=== PATIENT | female | born 1940 | race Caucasian/White ===

== ENCOUNTER 2018-06-02 13:01 | Day surgery (SDC) | payer OTHER ==
[2018-06-02] MEDS ORDERED: DENOSUMAB 60 MG/ML DISP.SYRIN SQ ONE (14:15)
[2018-06-02 15:03] VITALS: BP 144/72; PULSE 82; TEMP 97.7
== END 2018-06-02 15:09 | disposition home or self-care (01) ==
LOC: JASU-ENDO 13:01
PROVIDERS: ATTEND Internal Medicine Endocrinology, Diabetes & Metabolism
PROC: 3E013GC Introduction of Other Therapeutic Substance into Subcutaneous Tissue, Percutaneous Approach (ICD-10-PCS; principal; 2018-06-02)
DX: M81.0 Age-related osteoporosis without current pathological fracture (principal)
CPT/HCPCS: 96372; J0897

== ENCOUNTER 2019-09-25 13:03 | Day surgery (SDC) | payer OTHER ==
[2019-09-25] MEDS ORDERED: DENOSUMAB 60 MG/ML DISP.SYRIN SQ ONE (13:15)
[2019-09-25 14:31] VITALS: BP 163/82; PULSE 59; TEMP 97.9
== END 2019-09-25 14:15 | disposition home or self-care (01) ==
LOC: JCHEMO 13:03
PROVIDERS: ATTEND Internal Medicine Endocrinology, Diabetes & Metabolism
PROC: 3E013GC Introduction of Other Therapeutic Substance into Subcutaneous Tissue, Percutaneous Approach (ICD-10-PCS; principal; 2019-09-25)
DX: M81.0 Age-related osteoporosis without current pathological fracture (principal)
CPT/HCPCS: 96372; J0897

== ENCOUNTER 2022-04-08 16:23 | Inpatient (IN) | payer OTHER ==
[2022-04-08 16:47] VITALS: BMI 41.1
[2022-04-08 17:39] LABS: HEMATOCRIT 34.5 % (32.4-45.2); HEMOGLOBIN 11.3 G/dL (10.7-15.3); MCH 25.6 pg (25.7-33.7); MCHC 32.7 g/dl (32.0-36.0); MEAN CELL VOLUME 78.3 fl (80-96); MEAN PLT VOLUME 9.6 fl (7.5-11.1); PLATELET COUNT 290.6 10^3/uL (134-434); RBC 4.41 10^6/uL (3.60-5.2); RDW 17.7 % (11.6-15.6); WHITE BLOOD COUNT 10.6 10^3/uL (4.0-10.8)
[2022-04-08 17:44] LABS: ALBUMIN 3.6 g/dl (3.4-5.0); BILIRUBIN,TOTAL 0.8 mg/dl (0.2-1); CALCIUM 9.3 mg/dl (8.5-10); CREATININE 1.3 mg/dl (0.55-1.3); TOT PROT 6.9 g/dl (6.4-8.2)
[2022-04-08 18:11] LABS: PLATELET ESTIMATE ADEQUATE
[2022-04-08 18:12] LABS: EPITHELIAL CELLS FEW /hpf
[2022-04-08] MEDS ORDERED: FUROSEMIDE 40 MG/4 ML INJECTABLE VIAL IVPUSH ONE (18:30)
[2022-04-08] MEDS ORDERED: FUROSEMIDE 40 MG/4 ML INJECTABLE VIAL ONE (19:25)
[2022-04-09] MEDS ORDERED: LEVOTHYROXINE NA 112 MCG TABLET (FP) ONE (06:20)
[2022-04-09] MEDS ORDERED: LEVOTHYROXINE NA 25 MCG TABLET (FP) ONE (06:20)
[2022-04-09] MEDS: LEVOTHYROXINE 112 MCG, LEVOTHYROXINE 25 MCG PO SCH (06:33)
[2022-04-09] MEDS: sitaGLIPtin PHOSPHATE 50 MG TABLET PO SCH (06:33)
[2022-04-09] MEDS ORDERED: LEVOTHYROXINE SODIUM 137 MCG PO SCH (07:00)
[2022-04-09 08:11] LABS: ALBUMIN 3.3 g/dl (3.4-5.0); BILIRUBIN,TOTAL 1.1 mg/dl (0.2-1); CALCIUM 9.1 mg/dl (8.5-10); CREATININE 1.2 mg/dl (0.55-1.3); TOT PROT 6.3 g/dl (6.4-8.2)
[2022-04-09] MEDS: FUROSEMIDE 40 MG/4 ML INJECTABLE VIAL IVPUSH SCH (09:26)
[2022-04-09] MEDS: MONTELUKAST NA 10 MG TABLET PO SCH (09:26)
[2022-04-09] MEDS: APIXABAN 5 MG TABLET PO SCH ×2 (09:26→21:36)
[2022-04-09] MEDS ORDERED: ATENOLOL 50 MG TABLET (FP) PO SCH (10:00)
[2022-04-09] MEDS ORDERED: ASPIRIN COATED 81 MG TABLET.EC PO SCH (10:00)
[2022-04-09] MEDS: INSULIN (NOVOLOG) ASPART 100 UNITS/ML 10ML VIAL SQ SCH ×2 (16:53→21:36)
[2022-04-09] MEDS: metFORMIN HCL 500 MG TABLET (FP) PO SCH (16:54)
[2022-04-09] MEDS ORDERED: LOSARTAN POTASSIUM 50 MG TABLET PO SCH (22:00)
[2022-04-09] MEDS ORDERED: ATENOLOL 25 MG TABLET (FP) PO SCH (22:00)
[2022-04-09] MEDS ORDERED: PATIENT'S OWN MEDICATION (NON-FORMULARY) (Irbesartan [Avapro] 300 MG Tablet) PO SCH (22:00)
[2022-04-10] MEDS ORDERED: LEVOTHYROXINE NA 25 MCG TABLET (FP) ONE (06:13)
[2022-04-10] MEDS ORDERED: LEVOTHYROXINE NA 112 MCG TABLET (FP) ONE (06:13)
[2022-04-10] MEDS: metFORMIN HCL 500 MG TABLET (FP) PO SCH (06:23)
[2022-04-10] MEDS: LEVOTHYROXINE 112 MCG, LEVOTHYROXINE 25 MCG PO SCH (06:24)
[2022-04-10] MEDS: sitaGLIPtin PHOSPHATE 50 MG TABLET PO SCH (06:24)
[2022-04-10] MEDS: INSULIN (NOVOLOG) ASPART 100 UNITS/ML 10ML VIAL SQ SCH ×2 (06:25→11:28)
[2022-04-10] MEDS: FUROSEMIDE 40 MG/4 ML INJECTABLE VIAL IVPUSH SCH (09:04)
[2022-04-10] MEDS: MONTELUKAST NA 10 MG TABLET PO SCH (09:04)
[2022-04-10] MEDS: APIXABAN 5 MG TABLET PO SCH (09:04)
[2022-04-10] MEDS ORDERED: PATIENT'S OWN MEDICATION (NON-FORMULARY) (Simvastatin 20 MG Tablet) PO SCH (10:00)
[2022-04-10 11:54] LABS: CREATININE 1.5 mg/dl (0.55-1.3)
[2022-04-10 14:03] VITALS: BP 111/43; PULSE 92; TEMP 98
== END 2022-04-10 15:43 | disposition home or self-care (01) | DRG 291 ==
LOC: SUPCPDRO 16:23 → FER 16:23 → FM/S 19:08
PROVIDERS: ADMIT Internal Medicine; ATTEND Nurse Practitioner Acute Care
DX: I11.0 Hypertensive heart disease with heart failure (principal); I50.33 Acute on chronic diastolic (congestive) heart failure; J98.11 Atelectasis; Z68.41 Body mass index [BMI] 40.0-44.9, adult; E78.5 Hyperlipidemia, unspecified; I48.91 Unspecified atrial fibrillation; D64.9 Anemia, unspecified; E11.9 Type 2 diabetes mellitus without complications; E66.8 Other obesity; Z68.39 Body mass index [BMI] 39.0-39.9, adult; E03.9 Hypothyroidism, unspecified; J44.9 Chronic obstructive pulmonary disease, unspecified; K21.9 Gastro-esophageal reflux disease without esophagitis; I25.10 Atherosclerotic heart disease of native coronary artery without angina pectoris
CPT/HCPCS: 0241U-QW; 36415; 71045-TC-FY; 80048; 80053; 81003; 81015; 82962; 83880; 84484; 85025; 87086; 93005; 97116-GP; 97161-GP; 99285-25; C9803-CS; U0003; U0005

== ENCOUNTER 2022-04-21 18:40 | Emergency (ER) | payer OTHER ==
[2022-04-21 18:59] VITALS: BP 128/66; PULSE 96; TEMP 97.9; BMI 39.8
== END 2022-04-21 22:02 | disposition home or self-care (01) ==
LOC: FER 18:40
DX: S93.402A Sprain of unspecified ligament of left ankle, initial encounter (principal); S83.91XA Sprain of unspecified site of right knee, initial encounter; S83.92XA Sprain of unspecified site of left knee, initial encounter; W19.XXXA Unspecified fall, initial encounter
CPT/HCPCS: 73560-TC-LT-FY; 73560-TC-RT-FY; 73610-TC-LT-FY; 73630-TC-LT; 99284-25

== ENCOUNTER 2022-12-07 12:51 | Inpatient (IN) | payer OTHER ==
[2022-12-07 13:42] LABS: MCH 29.5 pg (25.7-33.7); MCHC 34.5 g/dl (32.0-36.0); MEAN CELL VOLUME 85.5 fl (80-96); MEAN PLT VOLUME 8.8 fl (7.5-11.1); PLATELET COUNT 226.7 10^3/uL (134-434); RBC 3.74 10^6/uL (3.60-5.2); RDW 18.5 % (11.6-15.6)
[2022-12-07 14:55] LABS: ALBUMIN 3.1 g/dl (3.4-5.0); BILIRUBIN,TOTAL 1.1 mg/dl (0.2-1); CALCIUM 8.8 mg/dl (8.5-10); CREATININE 1.6 mg/dl (0.55-1.3); TOT PROT 6.3 g/dl (6.4-8.2)
[2022-12-07 16:00] LABS: EPITHELIAL CELLS MODERATE /hpf
[2022-12-07 16:03] LABS: URINE HYALINE CAST 0-2 /lpf
[2022-12-07 16:05] LABS: ANISOCYTOSIS 1+; PLATELET ESTIMATE ADEQUATE
[2022-12-07] MEDS ORDERED: REMDESIVIR 200 MG in SODIUM CHLORIDE 250 ML IVPB ONE (17:22)
[2022-12-07 19:23] VITALS: BMI 42.3
[2022-12-07] MEDS ORDERED: ACETAMINOPHEN 325 MG TABLET (FP) PO PRN (21:07)
[2022-12-07] MEDS ORDERED: DOCUSATE SODIUM 100 MG CAPSULE (FP) PO PRN (21:07)
[2022-12-07] MEDS: DEXTROSE 5%-NORMAL SALINE 1,000 ML IV SCH (23:00)
[2022-12-08] MEDS: LEVOTHYROXINE NA 125 MCG TABLET (FP) PO SCH (06:04)
[2022-12-08 08:00] LABS: CALCIUM 8.1 mg/dl (8.5-10); CREATININE 1.5 mg/dl (0.55-1.3); MAGNESIUM 1.8 mg/dL (1.8-2.4); PHOSPHOROUS 3.3 mg/dl (2.5-4.9)
[2022-12-08 09:21] LABS: BASO % 0.4 % (0-2.0); EOS % 0.1 % (0-4.5); HEMATOCRIT 33.1 % (32.4-45.2); HEMOGLOBIN 10.6 GM/dL (10.7-15.3); LYMPH % 19.9 % (8-40); MCHC 31.9 g/dl (32.0-36.0); MEAN CELL VOLUME 87.8 fl (80-96); MEAN PLT VOLUME 8.7 fl (7.5-11.1); MONO % 14.2 % (3.8-10.2); NEUT % 65.4 % (42.8-82.8); PLATELET COUNT 206 10^3/uL (134-434); RBC 3.77 M/mm3 (3.60-5.2); RDW 19.4 % (11.6-15.6); WHITE BLOOD COUNT 5.2 K/mm3 (4.0-10.0)
[2022-12-08] MEDS ORDERED: FESOTERODINE FUMARATE 8 MG PO SCH (10:00)
[2022-12-08] MEDS ORDERED: APIXABAN 5 MG TABLET PO SCH (10:00)
[2022-12-08] MEDS: REMDESIVIR 100 MG in SODIUM CHLORIDE 250 ML IVPB SCH (10:14)
[2022-12-08] MEDS: LOSARTAN POTASSIUM 50 MG TABLET PO SCH (10:15)
[2022-12-08] MEDS: ATENOLOL 25 MG TABLET (FP) PO SCH (10:15)
[2022-12-08] MEDS: INSULIN SLIDING SCALE (NOVOLOG) 1 VIAL SQ SCH ×3 (11:31→22:19)
[2022-12-08] MEDS: NYSTATIN POWDER 100,000 UNITS/GM - 15 GM TOPICAL POWDER TP SCH ×2 (12:45→22:19)
[2022-12-08] MEDS ORDERED: MONTELUKAST NA 10 MG TABLET PO SCH (22:00)
[2022-12-08] MEDS: APIXABAN 2.5 MG TABLET PO SCH (22:26)
[2022-12-09] MEDS: INSULIN SLIDING SCALE (NOVOLOG) 1 VIAL SQ SCH ×2 (06:19→12:02)
[2022-12-09] MEDS: LEVOTHYROXINE NA 125 MCG TABLET (FP) PO SCH (06:20)
[2022-12-09] MEDS: DEXTROSE 5%-NORMAL SALINE 1,000 ML IV SCH (06:21)
[2022-12-09 08:40] LABS: ALBUMIN 2.6 g/dl (3.4-5.0); BILIRUBIN,TOTAL 0.7 mg/dl (0.2-1); CALCIUM 7.9 mg/dl (8.5-10); CREATININE 1.4 mg/dl (0.55-1.3); MAGNESIUM 1.8 mg/dL (1.8-2.4); PHOSPHOROUS 3.1 mg/dl (2.5-4.9); TOT PROT 5.4 g/dl (6.4-8.2)
[2022-12-09] MEDS: ATENOLOL 25 MG TABLET (FP) PO SCH (09:25)
[2022-12-09] MEDS: APIXABAN 2.5 MG TABLET PO SCH (09:26)
[2022-12-09] MEDS: NYSTATIN POWDER 100,000 UNITS/GM - 15 GM TOPICAL POWDER TP SCH (09:26)
[2022-12-09] MEDS: LOSARTAN POTASSIUM 50 MG TABLET PO SCH (09:26)
[2022-12-09 09:54] LABS: BASO % 0.6 % (0-2.0); EOS % 0.4 % (0-4.5); HEMATOCRIT 31.8 % (32.4-45.2); HEMOGLOBIN 10.3 GM/dL (10.7-15.3); LYMPH % 31.4 % (8-40); MCH 28.4 pg (25.7-33.7); MCHC 32.2 g/dl (32.0-36.0); MEAN CELL VOLUME 88.2 fl (80-96); MEAN PLT VOLUME 8.9 fl (7.5-11.1); MONO % 14.1 % (3.8-10.2); NEUT % 53.5 % (42.8-82.8); PLATELET COUNT 204 10^3/uL (134-434); RBC 3.61 M/mm3 (3.60-5.2); RDW 19.2 % (11.6-15.6)
[2022-12-09 10:00] VITALS: TEMP 99.4
[2022-12-09] MEDS: REMDESIVIR 100 MG in SODIUM CHLORIDE 250 ML IVPB SCH (10:05)
[2022-12-09] MEDS ORDERED: TOLTERODINE TARTRATE LA 4 MG CAP.SR.24H (FP) PO SCH (11:45)
[2022-12-09 15:03] VITALS: BP 114/54; PULSE 89; RESP 19
== END 2022-12-09 16:26 | disposition home or self-care (01) | DRG 177 ==
LOC: FER 12:51 → FM/S 17:22 → UNDOADMOB 17:22 → INTOOBSV 17:22 → FM/S 19:02 → OBSVTOIN 12-08 12:36
PROVIDERS: ADMIT Internal Medicine; ATTEND Internal Medicine
PROC: XW033E5 Introduction of Remdesivir Anti-infective into Peripheral Vein, Percutaneous Approach, New Technology Group 5 (ICD-10-PCS; principal; 2022-12-08)
DX: U07.1 COVID-19 (principal); I21.A1 Myocardial infarction type 2; I50.30 Unspecified diastolic (congestive) heart failure; Z68.41 Body mass index [BMI] 40.0-44.9, adult; I48.91 Unspecified atrial fibrillation; E78.5 Hyperlipidemia, unspecified; K21.9 Gastro-esophageal reflux disease without esophagitis; E11.9 Type 2 diabetes mellitus without complications; R53.1 Weakness; R21 Rash and other nonspecific skin eruption; E03.9 Hypothyroidism, unspecified; E66.9 Obesity, unspecified; I11.0 Hypertensive heart disease with heart failure; J34.89 Other specified disorders of nose and nasal sinuses; J02.9 Acute pharyngitis, unspecified; S40.022A Contusion of left upper arm, initial encounter; S40.021A Contusion of right upper arm, initial encounter; W17.89XA Other fall from one level to another, initial encounter; Y92.091 Bathroom in other non-institutional residence as the place of occurrence of the external cause
CPT/HCPCS: 0241U-QW; 36415; 71045-TC-FY; 72170-TC-FY; 73030-TC-RT-FY; 73200-TC-RT; 73521-TC-FY; 73562-TC-RT-FY; 80048; 80053; 81003; 81015; 82962; 83735; 84100; 84439; 84443; 84484; 85025; 85027; 87086; 93005; 94761; 97116-GP; 97162-GP; 99285-25; C9399; G0378

== ENCOUNTER 2024-04-06 13:20 | Observation (INO) | payer OTHER ==
[2024-04-06] MEDS ORDERED: ALBUTEROL SO4 2.5/IPRATROPIUM 0.5 INH SOL 3 ML VIAL.NEB. NEB ONE (14:04)
[2024-04-06] MEDS: ALBUTEROL SO4 2.5/IPRATROPIUM 0.5 INH SOL 3 ML VIAL.NEB. NEB ONE (14:26)
[2024-04-06 14:43] LABS: HEMATOCRIT 47.1 % (32.4-45.2); HEMOGLOBIN 15.2 G/dL (10.7-15.3); MCH 29.6 pg (25.7-33.7); MCHC 32.3 g/dl (32.0-36.0); MEAN CELL VOLUME 91.5 fl (80-96); MEAN PLT VOLUME 9.5 fl (7.5-11.1); PLATELET COUNT 205.6 10^3/uL (134-434); RBC 5.15 10^6/uL (3.60-5.2); RDW 16.4 % (11.6-15.6); WHITE BLOOD COUNT 8.3 10^3/uL (4.0-10.8)
[2024-04-06 14:49] LABS: ALBUMIN 3.9 g/dl (3.4-5.0); ALK PHOS 49 U/L (45-117); ANION GAP 8 mmol/L (4-13); BILIRUBIN,TOTAL 0.7 mg/dl (0.2-1); CALCIUM 9.4 mg/dl (8.5-10.1); CHLORIDE 100 mmol/L (98-107); CO2 30 mmol/L (21-32); CREATININE 1.6 mg/dl (0.6-1.3); GLUCOSE,RANDOM 154 mg/dl (74-106); POTASSIUM 4.2 mmol/L (3.5-5.1); SGOT/AST 21 U/L (15-37); SGPT/ALT 15 U/L (7-52); SODIUM 138 mmol/L (136-145); TOT PROT 6.7 g/dl (6.4-8.2)
[2024-04-06] MEDS ORDERED: FUROSEMIDE 40 MG/4 ML INJECTABLE VIAL ONE (15:08)
[2024-04-06] MEDS: FUROSEMIDE 40 MG/4 ML INJECTABLE VIAL IVPUSH ONE (15:35)
[2024-04-06 16:00] LABS: N-TERMINAL BNP 1906.9 pg/ml (5-450)
[2024-04-06 18:59] VITALS: BMI 43.4
[2024-04-06] MEDS: ATENOLOL 50 MG TABLET (FP) PO SCH (21:24)
[2024-04-06] MEDS: APIXABAN 2.5 MG TABLET PO SCH (21:24)
[2024-04-07 04:01] VITALS: RESP 18
[2024-04-07 08:18] LABS: HEMATOCRIT 46.9 % (32.4-45.2); HEMOGLOBIN 15.1 G/dL (10.7-15.3); MCHC 32.2 g/dl (32.0-36.0); MEAN CELL VOLUME 90.1 fl (80-96); MEAN PLT VOLUME 9.7 fl (7.5-11.1); PLATELET COUNT 208.3 10^3/uL (134-434); RBC 5.21 10^6/uL (3.60-5.2); RDW 16.2 % (11.6-15.6)
[2024-04-07 09:38] LABS: ANION GAP 12 mmol/L (4-13); CALCIUM 9.5 mg/dl (8.5-10.1); CHLORIDE 99 mmol/L (98-107); CO2 27 mmol/L (21-32); CREATININE 1.7 mg/dl (0.6-1.3); GLUCOSE,RANDOM 154 mg/dl (74-106); MAGNESIUM 2.1 mg/dL (1.8-2.4); PHOSPHOROUS 4.1 (2.5-4.9); SODIUM 138 mmol/L (136-145)
[2024-04-07] MEDS: ATENOLOL 25 MG TABLET (FP) PO SCH (09:56)
[2024-04-07] MEDS: FUROSEMIDE 40 MG/4 ML INJECTABLE VIAL IVPUSH SCH (09:56)
[2024-04-07] MEDS ORDERED: HEPARIN NA (PORCINE) 5,000 UNITS/ML 1ML VIAL SQ SCH (10:00)
[2024-04-07 10:08] VITALS: BP 128/68; PULSE 82; TEMP 98
== END 2024-04-07 12:21 | disposition home or self-care (01) ==
LOC: FER 13:20 → FM/S 15:33
PROVIDERS: ADMIT Internal Medicine
PROC: 3E0F7GC Introduction of Other Therapeutic Substance into Respiratory Tract, Via Natural or Artificial Opening (ICD-10-PCS; principal; 2024-04-06)
PROC: 3E033GC Introduction of Other Therapeutic Substance into Peripheral Vein, Percutaneous Approach (ICD-10-PCS; 2024-04-06)
DX: N17.9 Acute kidney failure, unspecified (principal); J44.1 Chronic obstructive pulmonary disease with (acute) exacerbation; I11.0 Hypertensive heart disease with heart failure; R06.09 Other forms of dyspnea; E78.5 Hyperlipidemia, unspecified; I48.91 Unspecified atrial fibrillation; Z79.01 Long term (current) use of anticoagulants; E11.9 Type 2 diabetes mellitus without complications; E03.9 Hypothyroidism, unspecified; K21.9 Gastro-esophageal reflux disease without esophagitis; Z85.42 Personal history of malignant neoplasm of other parts of uterus; Z87.891 Personal history of nicotine dependence; Z88.0 Allergy status to penicillin; Z88.8 Allergy status to other drugs, medicaments and biological substances; Z88.5 Allergy status to narcotic agent
CPT/HCPCS: 36415; 71045-TC-FY; 80048; 80053; 83735; 83880; 84100; 84443; 84484; 85027; 93005; 94640; 96374; 96376; 97116-GP; 99285-25; G0378